=== PATIENT | female | born 1975 | race African-American/Black ===

== ENCOUNTER 2017-09-05 15:13 | Emergency (ER) | payer BC ==
[~2017-09-05] VITALS: Ht 157.5 cm; Wt 85.3 kg
--- NOTE | ~2017-09-05 | EKG ---
[place] [address] [address] [facility] [place] [address] ELECTROCARDIOGRAM REPORT Name: CAMI ESTEVEZ [id number] Admission: 09/05/17 Attend Phys: Discharge: Date of : 73 Report #: [id number] THIS REPORT FOR: //name// [facility] ED Test Date: 2017-09-05 Test Time: 16:02:14 Pat Name: CAMI ESTEVEZ Department: Room: Gender: F Division Supervisor: Deborah MAI : 1975 Requested By: Maggie Nelson Order Number: [id number] MD: Fran Edgar Measurements Intervals [place] Rate: 67 P: 17 IA: 127 QRS: 78 QRSD: 100 T: 45 QT: 383 QTc: 405 Interpretive Statements Sinus rhythm Normal tracing No previous ECG available for comparison Electronically Signed On 09-05-2017 17:38:47 [employer]IPFITTER by Fran Edgar [email or web address] <ELECTRONICALLY SIGNED> By: Fran Edgar MD, [facility] 09/05/17 1738 1602 1602 Fran Edgar MD, FACC /EPI
[2017-09-05] MEDS ORDERED: ESSENTIAL DAIL1 EACH PO (16:39)
[2017-09-05] MEDS ORDERED: VITAMIN D2000 UNI2 PO (16:40)
[2017-09-05 16:43] LABS: HEMATOCRIT 43.6 % (37.0-47.0); HEMOGLOBIN 14.9 gm/dL (12.0-15.0); MCH 31.6 pg (26.0-34.0); MCHC 34.1 g/dL (28.0-37.0); MCV 92.6 fL (80.0-100.0); PLATELET COUNT 272 thou/uL (150-400); RBC 4.71 mil/uL (4.20-5.00); RDW 12.8 % (10.5-14.5); WBC 4.9 thou/uL (4.0-11.0)
[2017-09-05 16:47] LABS: ANION GAP 11 mmol/L (7-16); BUN 7 mg/dL (7-18); CALCIUM 9.5 mg/dL (8.5-10.1); CHLORIDE 105 mmol/L (98-107); CO2 23 mmol/L (21-32); CREATININE 0.7 mg/dL (0.6-1.0); GLUCOSE 126 mg/dL (74-106); POTASSIUM 3.5 mmol/L (3.5-5.1); SODIUM 139 mmol/L (136-145)
[2017-09-05 16:56] LABS: TROPONIN-I < 0.04 ng/mL (<0.06)
[2017-09-05 17:25] LABS: ABSOLUTE NEUTROPHILS 1.8 thou/uL (1.4-8.2)
[2017-09-05] MEDS ORDERED: BENTYL 20 MG TA20 M1 PO (18:43)
[2017-09-05] MEDS ORDERED: HYDROCODONE-AP1 EAC6 PO (18:43)
[2017-09-05] MEDS ORDERED: PHENERGAN 25 MG25 M1 PO (18:43)
== END 2017-09-05 18:59 | disposition home or self-care (01) ==
LOC: ER 15:13
PROVIDERS: Physician Assistant
DX: J06.9 Acute upper respiratory infection, unspecified (principal); R11.2 Nausea with vomiting, unspecified; R10.13 Epigastric pain

== ENCOUNTER 2020-04-06 04:06 | Emergency (ER) | payer BC ==
[~2020-04-06] VITALS: Ht 165.1 cm; Wt 90.7 kg
[~2020-04-06 04:06] MED LIST: BENTYL 20 MG TA20 M1 PO; ESSENTIAL DAIL1 EACH PO; HYDROCODONE-AP1 EAC6 PO; PHENERGAN 25 MG25 M1 PO; VITAMIN D2000 UNI2 PO
[2020-04-06] MEDS ORDERED: PERCOCET PO (05:44)
[2020-04-06] MEDS ORDERED: PREDNISONE 20 M20 MG PO (05:44)
[2020-04-06 05:48] VITALS: BP 138/97
== END 2020-04-06 05:49 | disposition home or self-care (01) ==
LOC: ER 04:06
DX: M54.32 Sciatica, left side (principal); Z79.899 Other long term (current) drug therapy

== ENCOUNTER 2020-07-20 18:50 | Emergency (ER) | payer BC ==
[~2020-07-20] VITALS: Ht 162.6 cm; Wt 90.7 kg
[~2020-07-20 18:50] MED LIST changes: +PERCOCET PO; +PREDNISONE 20 M20 MG PO
[2020-07-20 19:33] LABS: URINE BILIRUBIN NEGATIVE (Negative); URINE BLOOD NEGATIVE (Negative); URINE CLARITY CLEAR; URINE COLOR YELLOW; URINE GLUCOSE-RANDOM* NEGATIVE (Negative); URINE KETONES NEGATIVE (Negative); URINE LEUKOCYTES-REFLEX NEGATIVE (Negative); URINE NITRITE-REFLEX NEGATIVE (Negative); URINE PROTEIN (DIPSTICK) NEGATIVE (Negative); URINE SPECIFIC GRAVITY >= 1.030 (1.005-1.035); URINE UROBILINOGEN 0.2 E.U./dl (0.2-1.0)
[2020-07-20] MEDS ORDERED: POLYMYXIN B/TMP10 ML EA. EYE (23:03)
[2020-07-20] MEDS ORDERED: HYDROCODON-ACE1 EAC7 PO (23:03)
[2020-07-20 23:21] VITALS: BP 162/48
== END 2020-07-20 23:31 | disposition home or self-care (01) ==
LOC: ER 18:50
PROVIDERS: Nurse Practitioner
DX: R51.9 Headache, unspecified (principal); H10.9 Unspecified conjunctivitis; Z79.899 Other long term (current) drug therapy